=== PATIENT | male | born 1950 | race Caucasian/White ===

== ENCOUNTER 2016-10-21 13:11 | Inpatient (IN) | payer OTHER, MEDICAID ==
[2016-10-21] VITALS (21 sets, daily range): BP systolic 106–244; BP diastolic 67–119
[~2016-10-21] VITALS: Ht 170.2 cm; Wt 83.9 kg
[~2016-10-21 13:11] MED LIST: ATROPINE SULFATE 1MG/10ML SYR ONE; ETOMIDATE 2MG/ML 10ML VIAL IV ONE; SUCCINYLCHOLINE CHLORIDE 200MG/10ML VIAL IV ONE
[2016-10-21] MEDS ORDERED: ONDANSETRON HCL 4MG/2ML VIAL IV STA (13:28)
[2016-10-21] MEDS ORDERED: PROPOFOL 10MG/ML 100ML 100 ML IV ONE (13:30)
[2016-10-21] MEDS ORDERED: ETOMIDATE 2MG/ML 10ML VIAL IV ONE (13:30)
[2016-10-21] MEDS ORDERED: MIDAZOLAM HCL 2 MG/2 ML VIAL IV ONE (13:30)
[2016-10-21] MEDS ORDERED: FENTANYL CITRATE/PF 500 MCG in SODIUM CHLORIDE 0.9% 40 ML IV STA (13:30)
[2016-10-21] MEDS ORDERED: SUCCINYLCHOLINE CHLORIDE 200MG/10ML VIAL IV ONE (13:30)
[2016-10-21] MEDS ORDERED: LEVETIRACETAM 500MG PREMIX 100 ML IV ONE (14:00)
[2016-10-21] MEDS ORDERED: MANNITOL 12.5G (25%) VIAL 50ML IV ONE (14:00)
[2016-10-21] MEDS ORDERED: NICARDIPINE 40MG/200ML PREMIX 200 ML IV PRN (14:00)
[2016-10-21] MEDS ORDERED: LEVETIRACETAM 500MG/5ML CUP PO ONE (14:00)
[2016-10-21] MEDS ORDERED: GELATIN SPONGE,ABSORBABLE SZ 100 ONE (14:01)
[2016-10-21] MEDS ORDERED: BACITRACIN ZINC 15GM TUBE TOP ONE ×2 (14:01→15:13)
[2016-10-21] MEDS ORDERED: LIDOCAINE HCL/EPINEPHRINE 0.5%-EPI 1:200,000 50 ML VIAL INFIL ONE (14:02)
[2016-10-21] MEDS ORDERED: THROMBIN (BOVINE) 5000 UNITS/VIAL TOP ONE (14:02)
[2016-10-21] MEDS ORDERED: NORMAL SALINE 0.9% 10 ML SYR ONE (14:02)
[2016-10-21] MEDS ORDERED: BACITRACIN 50,000 UNITS/VIAL ONE (14:02)
[2016-10-21] MEDS ORDERED: LACTATED RINGERS 3,000 ML IV ONE (14:03)
[2016-10-21 14:09] LABS: BASOPHILS % 0.7 % (0.0-2.0); EOSINOPHILS % 2.8 % (0.0-5.0); MEAN CORPUSCULAR HEMOGLOBIN 32.2 pg (28.0-32.0); MEAN CORPUSCULAR VOLUME 96.9 fL (80.0-94.0); MEAN PLATELET VOLUME 7.6 fl (7.4-10.4); MONOCYTES % 9.6 % (2.0-8.0); NEUTROPHILS % 58.9 % (40.0-76.0); PLATELET 86 x1000/uL (130-400); RED BLOOD CELL COUNT 2.78 mill/uL (4.7-6.1); RED CELL DISTRIBUTION WIDTH 20.7 % (11.6-14.6)
[2016-10-21 14:15] LABS: INR 1.1; PROTHROMBIN TIME 11.7 sec
[2016-10-21 14:26] LABS: CARBON DIOXIDE 20 mEq/L (21-32); CHLORIDE 109 mEq/L (98-107); CREATINE KINASE 101 IU/L (39-308); ETHANOL BLOOD < 10 mg/dL; TROPONIN I < 0.02 ng/mL (0.00-0.04)
[2016-10-21] MEDS ORDERED: PROPOFOL 200MG/20ML VIAL IV ONE ×2 (14:52→15:21)
[2016-10-21] MEDS ORDERED: LABETALOL HCL 5MG/ML VIAL 20ML IV ONE (14:52)
[2016-10-21] MEDS ORDERED: CEFAZOLIN SODIUM 1000MG/VIAL ONE (14:52)
[2016-10-21] MEDS ORDERED: SODIUM CHLORIDE 0.9% 10ML VIAL ONE ×3 (14:52→15:20)
[2016-10-21] MEDS ORDERED: LABETALOL HCL 20MG/4ML CARPUJECT IV PRN (15:00)
[2016-10-21] MEDS ORDERED: MEPERIDINE HCL/PF 25MG/ML CPJ IV PRN (15:00)
[2016-10-21] MEDS ORDERED: ONDANSETRON HCL 4MG/2ML VIAL IV PRN ×2 (15:00→16:45)
[2016-10-21] MEDS ORDERED: HYDROMORPHONE HCL/PF 2MG/ML CPJ IV PRN (15:00)
[2016-10-21] MEDS ORDERED: VECURONIUM BROMIDE 10 MG/VIAL IV ONE (15:20)
[2016-10-21] MEDS ORDERED: PROTAMINE SULFATE 10MG/ML VIAL 5ML IV ONE (15:22)
[2016-10-21] MEDS ORDERED: DESMOPRESSIN ACETATE 4MCG/ML AMP IV ONE (16:30)
[2016-10-21 16:35] LABS: BG BASE EXCESS -3.4 mmol/L (-2.0-2.0); BG CARBOXYHEMOGLOBIN 0.1 % (0.5-1.5); BG DEOXYHEMOGLOBIN 0.9 % (0.0-5.0); BG FRACTION INSPIRED OXYGEN 100; BG HCO3 ACT 20.6 mmol/L (22.0-26.0); BG METHEMOGLOBIN 0.4 % (0.0-1.5); BG OXYGEN SATURATION 99.1 % (92.0-98.5); BG OXYHEMOGLOBIN 98.6 % (94.0-97.0); BG PCO2 32.6 mmHg (35.0-45.0); BG PH 7.419 (7.350-7.450); BG PO2 496.4 mmHg (75.0-100.0); BG SAMPLE SITE RIGHT RADIAL; BG TIDAL VOLUME(mL) 500 mL; BG TOTAL HEMOGLOBIN 7.2 g/dL (12.0-18.0); BG VENT MODE VENT - A/C; BG VENT RATE 12 set
[2016-10-21] MEDS ORDERED: ACETAMINOPHEN 325MG TABLET PO PRN (16:45)
[2016-10-21] MEDS ORDERED: LORAZEPAM 2MG/ML CPJ IV PRN (16:45)
[2016-10-21 16:55] LABS: BASOPHILS % 0.5 % (0.0-2.0); EOSINOPHILS % 0.6 % (0.0-5.0); HEMOGLOBIN. 7.2 g/dL (14.0-18.0); LYMPHOCYTES % 7.6 % (20.0-50.0); MEAN CORPUSCULAR HEMOGLOBIN 32.8 pg (28.0-32.0); MEAN CORPUSCULAR VOLUME 95.9 fL (80.0-94.0); MEAN PLATELET VOLUME 7.8 fl (7.4-10.4); MONOCYTES % 7.8 % (2.0-8.0); NEUTROPHILS % 83.5 % (40.0-76.0); PLATELET 72 x1000/uL (130-400); RED BLOOD CELL COUNT 2.19 mill/uL (4.7-6.1); RED CELL DISTRIBUTION WIDTH 20.7 % (11.6-14.6)
[2016-10-21 17:13] LABS: D-DIMER 5.18 mg/L FEU (<0.50)
[2016-10-21] MEDS ORDERED: NICARDIPINE 100 MG in SODIUM CHLORIDE 0.9% 60 ML IV PRN (17:30)
[2016-10-21] MEDS ORDERED: ATROPINE SULFATE 0.1MG/ML 10ML DISP.SYRIN IV NR (17:30)
[2016-10-21] MEDS ORDERED: DESMOPRESSIN ACETATE IVPB 20 MCG in SODIUM CHLORIDE 0.9% 50 ML IV NR (17:30)
[2016-10-22] VITALS (19 sets, daily range): BP systolic 79–192; BP diastolic 41–88
[2016-10-22 06:01] LABS: INR 1.1; PARTIAL THROMBOPLASTIN TIME 27.9 sec (24.0-34.0); PROTHROMBIN TIME 11.7 sec
[2016-10-22 06:09] LABS: D-DIMER 5.38 mg/L FEU (<0.50)
[2016-10-22] MEDS ORDERED: MORPHINE SULFATE 100 MG in SODIUM CHLORIDE 0.9% 90 ML IV PRN (08:30)
[2016-10-22] MEDS ORDERED: PANTOPRAZOLE SODIUM 40 MG/VIAL IV SCH (09:00)
[2016-10-22] MEDS ORDERED: MORPHINE SULFATE 250 MG in DEXT 5% WATER 240 ML IV PRN (10:00)
== END 2016-10-22 11:37 | disposition expired | DRG 23 ==
LOC: ER 13:54 → MICUNO 13:55 → EDBEDREQSVC 14:19 → EDBEDREQ 14:19
PROVIDERS: ADMIT Internal Medicine; ATTEND Internal Medicine
PROC: 5A1935Z Respiratory Ventilation, Less than 24 Consecutive Hours (ICD-10-PCS; 2016-10-21)
PROC: 00H032Z Insertion of Monitoring Device into Brain, Percutaneous Approach (ICD-10-PCS; 2016-10-21)
PROC: 00C40ZZ Extirpation of Matter from Intracranial Subdural Space, Open Approach (ICD-10-PCS; 2016-10-21)
PROC: 00U207Z Supplement Dura Mater with Autologous Tissue Substitute, Open Approach (ICD-10-PCS; 2016-10-21)
PROC: 4A103BD Monitoring of Intracranial Pressure, Percutaneous Approach (ICD-10-PCS; 2016-10-21)
PROC: 0BH17EZ Insertion of Endotracheal Airway into Trachea, Via Natural or Artificial Opening (ICD-10-PCS; 2016-10-21)
PROC: 00940ZZ Drainage of Intracranial Subdural Space, Open Approach (ICD-10-PCS; principal; 2016-10-21 13:56)
DX: I61.9 Nontraumatic intracerebral hemorrhage, unspecified (principal); G93.40 Encephalopathy, unspecified; J96.00 Acute respiratory failure, unspecified whether with hypoxia or hypercapnia; N18.6 End stage renal disease; I12.0 Hypertensive chronic kidney disease with stage 5 chronic kidney disease or end stage renal disease; E44.0 Moderate protein-calorie malnutrition; I16.1 Hypertensive emergency; D63.8 Anemia in other chronic diseases classified elsewhere; D69.6 Thrombocytopenia, unspecified; E78.00 Pure hypercholesterolemia, unspecified; E87.6 Hypokalemia; I77.0 Arteriovenous fistula, acquired; H57.04 Mydriasis; M10.9 Gout, unspecified; Z51.5 Encounter for palliative care; Z66 Do not resuscitate; Z82.49 Family history of ischemic heart disease and other diseases of the circulatory system; Z88.6 Allergy status to analgesic agent; Z88.8 Allergy status to other drugs, medicaments and biological substances; Z68.29 Body mass index [BMI] 29.0-29.9, adult
CPT/HCPCS: 31500; 36415; 36600; 51702; 70450; 71010; 80053; 82375; 82550; 82805; 82962; 83036; 83605; 83690; 83880; 84478; 84484; 85025; 85379; 85384; 85610; 85730; 86850; 86900; 86920; 88304; 93005; 94002; 94003; 96374; 96375; 99291; 99292; A4216; C1713; C1758; G0482; J0330; J0461; J0690; J1953; J2150; J2250; J2597; J2704; J2720; J3010; J3490; J7050; J7120; A4315